=== PATIENT | female | born 1950 | race Caucasian/White ===

== ENCOUNTER → 2016-10-17 | Outpatient (CLI) | payer MEDICARE, OTHER | END | disposition home or self-care (01) | LOC: GMAL 10:16 | PROVIDERS: ATTEND Family Medicine | DX: D51.3 Other dietary vitamin B12 deficiency anemia (principal); E55.9 Vitamin D deficiency, unspecified ==

== ENCOUNTER → 2017-03-03 | Outpatient (CLI) | payer MEDICARE, OTHER | END | disposition home or self-care (01) | LOC: GMAL 10:38 | PROVIDERS: ATTEND Family Medicine | DX: D51.3 Other dietary vitamin B12 deficiency anemia (principal); E55.9 Vitamin D deficiency, unspecified ==

== ENCOUNTER → 2017-09-28 | Outpatient (CLI) | payer MEDICARE, OTHER | LOC: GMAL 10:36 | PROVIDERS: ATTEND Family Medicine | DX: R53.82 Chronic fatigue, unspecified (principal); Z79.899 Other long term (current) drug therapy ==

== ENCOUNTER → 2018-04-05 | Outpatient (CLI) | payer MEDICARE, OTHER | LOC: GMAL 11:48 | PROVIDERS: ATTEND Family Medicine | DX: D51.3 Other dietary vitamin B12 deficiency anemia (principal); E55.9 Vitamin D deficiency, unspecified ==

== ENCOUNTER 2018-10-16 08:42 | Emergency (ER) | payer MEDICARE, OTHER ==
[2018-10-16] MEDS ORDERED: SODIUM CHLORIDE 0.9% (FLUSH) 10 ML SYG IV PRN (09:15)
--- NOTE | 2018-10-16 09:23 | ED.PDOC ---
History of Present Illness - General Chief Complaint: General Stated Complaint: DOUBLE VISION AND LIGHHEADED Time Seen by Provider: 10/16/18 09:14 Source: patient, family Exam Limitations: no limitations - History of Present Illness Initial Comments: WORKS HIGH SCHOOL NURSE. THIS AM, FELT FATIGUED GENERALLY, LIGHT-HEADED, AND DOUBLE VISION. NO DHILLON. DENIES ANY PAIN. AMBULATES. SPEECH AND MENTATION CLEAR, JUST SLIGHTLY DELAYED. Timing/Duration: constant Severity: moderate Improving Factors: nothing Worsening Factors: nothing Associated Symptoms: weakness - GENERAL Allergies/Adverse Reactions: Allergies Cephalosporins Allergy (Verified 10/16/18 09:05) Codeine Allergy (Verified 10/16/18 09:05) Corticosteroids Allergy (Verified 10/16/18 09:05) Penicillins Allergy (Verified 10/16/18 09:02) Sulfa Antibiotics Allergy (Verified 10/16/18 09:05) Home Medications: Ambulatory Orders Alprazolam 0.5 mg PO Q6H PRN 10/16/18 Fluoxetine HCl 60 mg PO DAILY 10/16/18 Simvastatin [Zocor] 40 mg PO BEDTIME 10/16/18 Review of Systems - Review of Systems Constitutional: States: weakness. Denies: chills, fever EENTM: States: other - DOUBLE VISION. Denies: eye pain, blurred vision, ear pain, nose pain Respiratory: Denies: cough, short of breath Cardiology: Denies: chest pain, palpitations Gastrointestinal/Abdominal: Denies: abdominal pain, nausea Genitourinary: Denies: discharge, dysuria Musculoskeletal: Denies: back pain, joint pain, muscle pain, neck pain Skin: Denies: lesions, rash Neurological: States: weakness - GENERALLY. Denies: headache, numbness, paresthesia Endocrine: Denies: intolerance to cold, intolerance to heat, increased hunger, increased thirst, increased urine, unexplained weight loss Hematologic/Lymphatic: Denies: easy bleeding, easy bruising All other Systems: Reviewed and Negative Past Medical History (General) - Patient Medical History Hx Stroke: No Hx of COPD: No Hx Cardiac Disorders: No Hx Congestive Heart Failure: No Hx Pacemaker: No Hx Hypertension: No Hx Thyroid Disease: No Hx Diabetes: No Hx Renal Disease: No Hx Hepatitis C: No Surgical History: appendectomy - Vaccination History Hx Tetanus, Diphtheria Vaccination: No Hx Influenza Vaccination: No Hx Pneumococcal Vaccination: No Immunizations Up to Date: No - Social History Hx Tobacco Use: Yes Hx Alcohol Use: No Hx Substance Use: No Hx Substance Use Treatment: No Hx Depression: Yes - Female History Patient is a Female of Child Bearing Age (10 -59 yrs old): No Family Medical History - Family History Mother Family History: No Known Physical Exam - Physical Exam General Appearance: Ill Appearing, Other - AWAKE Eye Exam: bilateral normal - PERRLA, EOMI, NO NYSTAGMUS. Ears, Nose, Throat: hearing grossly normal - WEARS HEARING AIDS. 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 BUE 4/5. ALL NEURO TESTS NL, BUT SHE IS JUST SLOW TO RESPOND: PAST POINTING, NL DYSDIADOKOKINESIA, NEG PRONATOR DRIFT, "OK" SIGN WITH FINGERS. DTR: 3+: Patellar, left, Patellar, right Skin Exam: normal color, warm/dry Lymphatic: no adenopathy Progress - Progress Progress: 10/16/18 09:53 ON REPEAT EXAM, PT STATES SHE NOW HAS A BL FRONTAL/TEMPORAL DHILLON. (NO OCCIPITAL DHILLON. NO "THUNDERCLAP". NO NUCHAL RIGIDITY OR NECK PAIN.) 10/16/18 10:00 PT HAD RECENT EXENSIVE SCREENING CARDIAC AND OTHER LABS WITH HER PCP WHICH I R EVIEWED AND THERE WERE NO CONCERNING ABNORMALITIES. 10/16/18 10:44 EXAM AND W/U NEG FOR STROKE, MENINGITIS, TUMOR. ETX OF PT'S DIPLOPIA, FRONTAL DHILLON, LIGHT-HEADEDNESS, AND GEN WEAKNESS ARE UNCLEAR. NO HTN, VS WNL. ORTHOSTATIC VS NEG. W/U NEG/WNL INCLUDES: HEAD CT, CXR, EKG, CARDIAC ENZ, CBC, CMP, COAGS, UA, FLU. 10/16/18 10:53 10/16/18 10:53 FOR THE DIPLOPIA, I INSTRUCTED THE PT TO SEE DIRECT CARE PROVIDER. SHE SAID SHE HAS AN EYE DR AND WILL GO. ADDITIONALLY, PT DENIES ANY H/O SZ AND TODAY IS NOT C/W SZ, HOWEVER I REFERRED HER TO NEUROLOGY, DR. JANG WHO COMES TO [place], FOR NEURO EVAL. SAFE FOR D/C TO HOME WITH ADULT DAUGHTER. WORK NOTE GIVEN. - EKG/XRAY/CT CT Ordered: Yes Departure - Departure Clinical Impression: Diplopia, Frontal headache, Light-headedness, Generalized weakness Disposition: Discharge to Home or Self Care Condition: Good Departure Forms: ED Discharge - Pt. Copy, Patient Portal Self Enrollment Instructions: Double Vision (DC) Diet: resume usual diet Activity: increase activity as tolerated Referrals: Nathan Hudson III, MD [Primary Care Provider] - 1-2 Weeks Home Medications: Ambulatory Orders Alprazolam 0.5 mg PO Q6H PRN 10/16/18 Fluoxetine HCl 60 mg PO DAILY 10/16/18 Simvastatin [Zocor] 40 mg PO BEDTIME 10/16/18 Additional Instructions: Please see your eye to further evaluate the double vision and Dr. Jang, neurologist, who come to [place] for neurological evaluation. Please get plenty of rest and fluids.
--- NOTE | 2018-10-16 09:56 | RAD ---
EXAM DESCRIPTION: Chest,1 View CLINICAL HISTORY: DIPLOPIA, LIGHT-HEADEDNESS, GEN WEAKNESS COMPARISON: Chest radiograph dated June 01, 2017 TECHNIQUE: Single upright frontal view the chest FINDINGS: Calcific atherosclerosis of the aortic arch. Cardiac silhouette shows upper limits of normal heart size. Pulmonary vascularity is within normal limits. Lungs show no confluent infiltrates. Costophrenic angles are sharp. No pneumothorax. Stable curvature of the thoracolumbar spine. No acute osseous abnormality. IMPRESSION: 1. No acute cardiopulmonary process. 2. Other findings as above. Electronically signed by: Nathan Rehman MD 10/16/2018 9:52 AM CDT
--- NOTE | 2018-10-16 09:56 | CT ---
EXAM DESCRIPTION: Head. CT head without contrast. CLINICAL HISTORY: DIPLOPIA, LIGHT-HEADEDNESS, GEN WEAKNESS COMPARISON: None available TECHNIQUE: Multiple axial images of the head without contrast. Multiplanar reformatted images. This exam was performed according to our departmental dose-optimization program, which includes automated exposure control, adjustment of the mA and/or kV according to patient size and/or use of iterative reconstruction technique. FINDINGS: Beam hardening artifact from a metallic device on the left temporal skin surface somewhat degraded image quality at the level of the skull base. This slightly limits evaluation. No visualized CT evidence of hemorrhage, mass effect, or large territory infarction. Mild generalized volume loss and mild patchy supratentorial white matter hypodensities. Mineralization in the basal ganglia. There are no abnormal extra-axial fluid collections. Calcific plaque in the visualized arteries. There is no acute calvarial defect. The visualized paranasal sinuses and the mastoids are clear. IMPRESSION: 1. No CT evidence of an acute intracranial abnormality. If there is concern for an acute or subacute infarct, consider follow-up MRI. 2. Mild senescent changes. Electronically signed by: Merrill Alvarez MD 10/16/2018 9:52 AM CDT
[2018-10-16] MEDS: IBUPROFEN 200 MG TAB PO ONE (11:04)
[2018-10-16 11:28] VITALS: BP 130/79; TEMP 97.9; O2SAT 96
== END 2018-10-16 11:30 | disposition home or self-care (01) ==
LOC: ER 08:42
DX: H53.2 Diplopia (principal); R51 Headache; R42 Dizziness and giddiness; R53.1 Weakness; F32.9 Major depressive disorder, single episode, unspecified; Z87.891 Personal history of nicotine dependence; Z79.899 Other long term (current) drug therapy; Z88.8 Allergy status to other drugs, medicaments and biological substances; Z88.5 Allergy status to narcotic agent; Z88.0 Allergy status to penicillin; Z88.2 Allergy status to sulfonamides

== ENCOUNTER → 2019-01-15 | Outpatient (CLI) | payer MEDICARE | LOC: GMAE 11:12 | PROVIDERS: ATTEND Family Medicine | DX: E55.9 Vitamin D deficiency, unspecified (principal) ==

== ENCOUNTER → 2019-04-09 | Outpatient (CLI) | payer MEDICARE | LOC: GMAL 14:53 | PROVIDERS: ATTEND Family Medicine | DX: D51.0 Vitamin B12 deficiency anemia due to intrinsic factor deficiency (principal); E55.9 Vitamin D deficiency, unspecified; I10 Essential (primary) hypertension; E78.49 Other hyperlipidemia; R53.82 Chronic fatigue, unspecified ==

== ENCOUNTER → 2019-07-08 | Outpatient (CLI) | payer MEDICARE ==
--- NOTE | 2019-07-08 11:43 | RAD ---
EXAM DESCRIPTION: Foot,Right 3 Views CLINICAL HISTORY: PAIN IN RIGHT FOOT COMPARISON: None Available. TECHNIQUE: AP, LATERAL, AND OBLIQUE FINDINGS: The visualized bones appear poorly mineralized. Oblique fracture through the distal shaft of the metatarsal with associated severe soft tissue swelling. IMPRESSION: Oblique fracture through the distal shaft of the metatarsal with associated severe soft tissue swelling. Electronically signed by: Lissa Holliday MD 07/08/2019 11:41 AM [facility]
== END ==
LOC: RAD 09:54
PROVIDERS: ATTEND Orthopaedic Surgery
DX: S92.301A Fracture of unspecified metatarsal bone(s), right foot, initial encounter for closed fracture (principal)

== ENCOUNTER → 2019-07-11 | Outpatient (CLI) | payer MEDICARE | LOC: GMAF 10:51 | PROVIDERS: ATTEND Nurse Practitioner Family | DX: I10 Essential (primary) hypertension (principal) ==

== ENCOUNTER → 2019-07-22 | Outpatient (CLI) | payer MEDICARE ==
--- NOTE | 2019-07-22 09:47 | RAD ---
EXAM DESCRIPTION: Foot,Right 3 Views CLINICAL HISTORY: 68 years Female, CLOSED FRACTURE OF METATARSAL BONE RIGHT COMPARISON: 07/08/2019 Findings: Three views Redemonstrated fifth metatarsal fracture, with possible early healing. Similar alignment. No new fracture identified. Osteopenia. Lisfranc alignment is maintained. No dislocation. IMPRESSION: Similar alignment of the fifth metatarsal fracture with possible early healing. No solid osseous bridging. Electronically signed by: Ovi Mobley MD 07/22/2019 9:45 AM [facility]
== END ==
LOC: RAD 08:18
PROVIDERS: ATTEND Orthopaedic Surgery
DX: S92.354D Nondisplaced fracture of fifth metatarsal bone, right foot, subsequent encounter for fracture with routine healing (principal)

== ENCOUNTER → 2019-08-22 | Outpatient (CLI) | payer MEDICARE ==
--- NOTE | 2019-08-22 14:49 | RAD ---
EXAM DESCRIPTION: Foot,Right 3 Views CLINICAL HISTORY: 68 years Female, CLOSED FRACTURE OF METATARSAL BONE RIGHT COMPARISON: July 22, 2019 FINDINGS: Three views of the right foot again show an obliquely oriented, nondisplaced and partially united fifth metatarsal fracture with slight interval increase in amount of callus formation from the prior exam. No new fracture or malalignment. No radiopaque foreign body or soft tissue gas. IMPRESSION: Partially united fifth metatarsal fracture as detailed above. No new abnormality. Electronically signed by: Hussein Montalvo MD 08/22/2019 2:47 PM [facility]
== END ==
LOC: RAD 07:43
PROVIDERS: ATTEND Orthopaedic Surgery
DX: S92.354D Nondisplaced fracture of fifth metatarsal bone, right foot, subsequent encounter for fracture with routine healing (principal)

== ENCOUNTER → 2019-09-20 | Outpatient (CLI) | payer MEDICARE ==
--- NOTE | 2019-09-20 12:47 | RAD ---
EXAM DESCRIPTION: Foot,Right 3 Views CLINICAL HISTORY: CLOSED FX OF METATARSAL BONE COMPARISON: Radiographs of the right foot dated 08/21/2019. TECHNIQUE: AP, LATERAL, AND OBLIQUE FINDINGS: The visualized bones appear poorly mineralized. Continued healing of the fracture of the fifth metatarsal with no complete bony union. There is persistent soft tissue swelling. IMPRESSION: Continued healing of the fracture of the fifth metatarsal with no complete bony union. Electronically signed by: Lissa Holliday MD 09/20/2019 12:45 PM [facility]
== END ==
LOC: RAD 07:44
PROVIDERS: ATTEND Orthopaedic Surgery
DX: S92.354D Nondisplaced fracture of fifth metatarsal bone, right foot, subsequent encounter for fracture with routine healing (principal)

== ENCOUNTER → 2020-02-26 | Outpatient (CLI) | payer MEDICARE | LOC: GMAL 14:54 | PROVIDERS: ATTEND Family Medicine | DX: D51.0 Vitamin B12 deficiency anemia due to intrinsic factor deficiency (principal); R53.82 Chronic fatigue, unspecified; Z79.899 Other long term (current) drug therapy; E78.49 Other hyperlipidemia; E55.9 Vitamin D deficiency, unspecified ==